=== PATIENT | male | born 1995 | race Caucasian/White ===

== ENCOUNTER 2022-11-06 17:38 | Emergency (ER) | payer SELFPAY ==
[2022-11-06 18:05] VITALS: PULSE 98
== END 2022-11-06 18:48 | disposition left against medical advice (07) ==
LOC: ER 17:38
DX: S99.922A Unspecified injury of left foot, initial encounter (principal); Z53.21 Procedure and treatment not carried out due to patient leaving prior to being seen by health care provider
CPT/HCPCS: 99281